=== PATIENT | male | born 1960 | race Caucasian/White ===

== ENCOUNTER 2016-06-16 08:00 | Outpatient (RCR) | payer MEDICAID, SELFPAY ==
[~2016-06-16 08:00] MED LIST: PROZ20CA OR; ST JOHN'S WART PO; ZANT150T OR
== END 2016-06-19 ==
LOC: M ST 08:00
PROVIDERS: ATTEND Nurse Practitioner Family
DX: Z51.89 Encounter for other specified aftercare (principal); I69.322 Dysarthria following cerebral infarction

== ENCOUNTER 2016-07-16 09:00 | Outpatient (RCR) | payer MEDICAID | END 2016-07-19 | LOC: M ST 09:00 | PROVIDERS: ATTEND Nurse Practitioner Family | DX: Z51.89 Encounter for other specified aftercare (principal); I69.322 Dysarthria following cerebral infarction ==

== ENCOUNTER 2016-08-07 08:00 | Outpatient (RCR) | payer MEDICAID, OTHER | END 2016-08-11 12:23 | disposition home or self-care (01) | LOC: M ST 08:00 | PROVIDERS: ATTEND Nurse Practitioner Family | DX: Z51.89 Encounter for other specified aftercare (principal); I69.322 Dysarthria following cerebral infarction ==

== ENCOUNTER 2017-02-17 08:24 | Day surgery (SDC) | payer OTHER ==
[~2017-02-17] VITALS: Ht 177.8 cm; Wt 92.5 kg
[~2017-02-17 08:24] MED LIST changes: +ACETAMINOPHEN 325 MG TAB PO PRN; +ASPI325T28 PO; +ATOR40TA75 PO; +BUPR150T5 PO; +CLOP75TA2 PO; +CYCLOPENTOLATE 2% OPHTH SOLN 2ML BTL OD ONE; +FLOM5CAP PO; +LIDOCAINE 3.5 % 1ML OPHTH TOPICAL GEL OU ONE; +METO50TA7 PO; +NITR0.4S14 SL; +OFLOXACIN 0.3 % (OCUFLOX) OPTH SOL 5ML OD ONE; +PHENYLEPHRINE 2.5% OPHTH SOL 2ML OD ONE; +PROPARACAINE 0.5% OPHTH SOL 15ML OD PRN; +RAMI1.25 PO; +TROPICAMIDE 1% OPHTH SOLN 2ML OD ONE; +VITA1CAP40 PO
[2017-02-17] MEDS ORDERED: HEALON DUET (HEALON 10MG/ML 0.55ML & HEALON ENDOCOAT 30MG/ML 0.85ML) As Ordered ONE (10:20)
[2017-02-17] MEDS ORDERED: POVIDONE-IODINE 5% OPHTH PREP SOL 30ML As Ordered ONE (10:20)
[2017-02-17] MEDS ORDERED: LIDOCAINE 1% SDV 5 ML VIAL As Ordered ONE (10:20)
[2017-02-17] MEDS ORDERED: CEFUROXIME 1MG/0.1ML INTRACAMERAL INJ As Ordered ONE (10:20)
[2017-02-17] MEDS ORDERED: ACETYLCHOLINE OPHTH SOLN 1% 2ML (MIOCHOL-E) As Ordered ONE (10:20)
[2017-02-17] MEDS ORDERED: BALANCED SALT IRRIGATION SOLUTION 500ML BAG (FOR OR EYE MACHINE) As Ordered ONE (10:21)
[2017-02-17] MEDS ORDERED: MIDAZOLAM INJ 2 MG/2 ML VIAL (J2250) As Ordered ONE (10:44)
[2017-02-17] MEDS ORDERED: fentaNYL 100 MCG/2 ML INJECTION (J3010) As Ordered ONE (10:44)
[2017-02-17] MEDS ORDERED: AcetaZOLAMIDE 500 MG ER CAP As Ordered ONE (11:22)
[2017-02-17 11:30] VITALS: BP 111/69
[2017-02-17] MEDS ORDERED: AcetaZOLAMIDE 500 MG ER CAP PO ONE (11:45)
[2017-02-17] MEDS ORDERED: TRIMETHOBENZAMIDE 300 MG CAP PO PRN (11:45)
[2017-02-17] MEDS ORDERED: KETOROLAC 0.5% OPHTH SOLN OD ONE (11:45)
--- NOTE | 2017-02-17 13:40 | RO ---
DATE OF PROCEDURE: 02/17/2017 PREPROCEDURE DIAGNOSIS: Age-related nuclear cataract right eye. POSTPROCEDURE DIAGNOSIS: Age-related nuclear cataract right eye. PROCEDURE PERFORMED: Phacoemulsification and posterior chamber intraocular lens implantation, right eye. Lens used is a AU 00T0 17.0 diopter. SURGEON: Michelle Alonzo MD AUTO ROLLER: ANESTHESIA: Topical with sedation. DESCRIPTION OF PROCEDURE: The patient was prepped and draped in the usual fashion. A lid speculum was placed between the lids. The eye was fixated. A stab incision was made to the anterior chamber, and 1% nonpreserved Lidocaine was instilled. Then, viscoelastic was instilled. The eye was refixated. A 2.75 mm sapphire keratome was used to make a clear corneal temporal limbal incision. Capsulorrhexis was begun with a 30-gauge bent needle and then carried out in a circular fashion with capsulorrhexis forceps. The lens was hydrodissected, and then the phacoemulsification unit was used to make a groove in the nucleus and two meridians. The nucleus was then cracked into four quadrants. Each quadrant was removed with the phacoemulsification unit. Any remaining cortex was removed with the I+A unit. Capsular bag was refilled with viscoelastic. A posterior chamber intraocular lens was placed in the capsular bag without difficulty. Any remaining viscoelastic was removed with the I+A unit. The wound was hydrated, and Miochol and cefuroxime were instilled into the anterior chamber. The patient tolerated the procedure well and went to the recovery room in stable condition.
== END 2017-02-17 11:45 | disposition home or self-care (01) ==
LOC: M SDC 08:24
PROVIDERS: ATTEND Ophthalmology
DX: H25.11 Age-related nuclear cataract, right eye (principal); R94.31 Abnormal electrocardiogram [ECG] [EKG]; I25.2 Old myocardial infarction; I69.911 Memory deficit following unspecified cerebrovascular disease; I69.953 Hemiplegia and hemiparesis following unspecified cerebrovascular disease affecting right non-dominant side; I11.0 Hypertensive heart disease with heart failure; I25.10 Atherosclerotic heart disease of native coronary artery without angina pectoris; Z79.899 Other long term (current) drug therapy; Z79.82 Long term (current) use of aspirin; Z95.5 Presence of coronary angioplasty implant and graft